=== PATIENT | female | born 1965 | race Caucasian/White ===

== ENCOUNTER → 2016-10-24 09:58 | Outpatient (CLI) | payer MEDICARE | END | disposition home or self-care (01) | LOC: D.MRI 09:58 | DX: M54.16 Radiculopathy, lumbar region (principal) ==

== ENCOUNTER 2016-11-10 13:39 | Emergency (ER) | payer MEDICARE ==
[2016-11-10 14:10] LABS: BASOPHILS 0.2 % (0-2); EOSINOPHILS 1.6 % (0-7); HEMATOCRIT 49.7 % (36.0-48.0); HEMOGLOBIN 16.6 g/dL (12-16); IMMATURE GRANULOCYTES 0.2 % (0-5); LYMPHOCYTES 46.2 % (15-50); MCH 32.4 pg (26.0-34.0); MCHC 33.4 g/dL (31.0-37.0); MCV 96.9 fL (80.0-100.0); MEAN PLATELET VOLUME 10.3 fL (7.4-10.4); MONOCYTES 7.6 % (2-11); NEUTROPHILS 44.2 % (40-80); RBC 5.13 10x6/uL (4.00-5.40); RDW 13.2 % (11.5-14.5); WBC 5.8 10x3/uL (4.8-10.8)
[2016-11-10 14:12] LABS: PLATELET COUNT 122 10x3/uL (130-400)
[2016-11-10 14:31] LABS: ALBUMIN 3.6 g/dL (3.4-5.0); ALKALINE PHOSPHATASE 96 U/L (46-116); ALT (SGPT) 28 U/L (10-68); BILIRUBIN - TOTAL 0.46 mg/dL (0.2-1.3); CALC OSMOLALITY 276 mosm/kg (275-300); CALCIUM 9.1 mg/dL (8.5-10.1); CARBON DIOXIDE 34.6 mmol/L (21.0-32.0); CHLORIDE - SERUM 102 mmol/L (98-107); CREATININE - SERUM 0.8 mg/dL (0.6-1.3); GLUCOSE 84 mg/dL (74-106); POTASSIUM - SERUM 4.4 mmol/L (3.5-5.1); PROTEIN - SERUM 6.9 g/dL (6.4-8.2); SODIUM 140 mmol/L (136-145); UREA NITROGEN 9 mg/dL (7-18); eGFR NON AFRICAN AMERICAN 81 mL/min (90-120)
[2016-11-10 15:30] LABS: APPEARANCE HAZY (CLEAR); BILIRUBIN NEGATIVE (NEGATIVE); COLOR YELLOW (YELLOW); GLUCOSE NEGATIVE (NEGATIVE); KETONE NEGATIVE (NEGATIVE); LEUKOCYTE ESTERASE TRACE (NEGATIVE); NITRITE NEGATIVE (NEGATIVE); PROTEIN NEGATIVE (NEGATIVE); UROBILINOGEN NORMAL (NORMAL)
[2016-11-10 15:31] LABS: BACTERIA FEW /hpf (NONE SEEN); EPITHELIAL CELLS 0-5 /hpf (0-5); RED CELLS - URINE >50 /hpf (0-5); WHITE CELLS - URINE 0-5 /hpf (0-5)
== END 2016-11-10 15:45 | disposition left against medical advice (07) ==
LOC: D.ER 13:39
PROVIDERS: Emergency Medicine Emergency Medical Services
DX: R10.9 Unspecified abdominal pain (principal)

== ENCOUNTER 2019-04-01 16:39 | Observation (INO) | payer MEDICARE ==
[~2019-04-01] VITALS: Ht 167.6 cm; Wt 101.6 kg
[2019-04-01] MEDS ORDERED: ZANAFLEX4 MG PO (16:51)
[2019-04-01] MEDS ORDERED: AMBIEN10 MG PO (16:52)
[2019-04-01] MEDS ORDERED: PERCOCET 10-321 EAC1 PO (16:52)
[2019-04-01] MEDS ORDERED: LYRICA150 MG PO (16:52)
[2019-04-01] MEDS ORDERED: MORPHINE SULFAT15 M4 PO (16:52)
[2019-04-01 17:19] LABS: BASOPHILS 0 % (0-2); EOSINOPHILS 1.4 % (0-7); HEMATOCRIT 48.7 % (36.0-48.0); HEMOGLOBIN 17.1 g/dL (12-16); IMMATURE GRANULOCYTES 0.2 % (0-5); LYMPHOCYTES 49.6 % (15-50); MCH 31.2 pg (26.0-34.0); MCHC 35.1 g/dL (31.0-37.0); MCV 88.9 fL (80.0-100.0); MEAN PLATELET VOLUME 10.1 fL (7.4-10.4); MONOCYTES 4.5 % (2-11); NEUTROPHILS 44.3 % (40-80); RBC 5.48 10x6/uL (4.00-5.40); RDW 12.9 % (11.5-14.5); WBC 5.8 10x3/uL (4.8-10.8)
[2019-04-01 17:31] LABS: PLATELET COUNT 149 10x3/uL (130-400)
[2019-04-01 17:32] LABS: ALBUMIN 3.8 g/dL (3.4-5.0); ALKALINE PHOSPHATASE 97 U/L (46-116); ALT (SGPT) 30 U/L (10-68); BILIRUBIN - TOTAL 0.49 mg/dL (0.2-1.3); CALC OSMOLALITY 281 mosm/kg (275-300); CALCIUM 9.1 mg/dL (8.5-10.1); CHLORIDE - SERUM 101 mmol/L (98-107); CREATININE - SERUM 0.9 mg/dL (0.6-1.3); GLUCOSE 115 mg/dL (74-106); POTASSIUM - SERUM 3.4 mmol/L (3.5-5.1); PROTEIN - SERUM 7.4 g/dL (6.4-8.2); SODIUM 142 mmol/L (136-145); UREA NITROGEN 6 mg/dL (7-18); eGFR NON AFRICAN AMERICAN 70 mL/min (90-120)
[2019-04-01 17:38] LABS: APTT 29.2 SECONDS (22.8-39.4); PROTIME 12.7 SECONDS (11.6-15.0)
[2019-04-01 17:44] LABS: CKMB 0.5 U/L (0.0-3.6); CREATINE KINASE 34 UL (21-215); MAGNESIUM - SERUM 1.7 mg/dL (1.8-2.4)
[2019-04-01 17:50] LABS: TROPONIN-I < 0.017 ng/mL (0.000-0.060)
--- NOTE | 2019-04-01 18:57 | NUR ---
PT REPORT RECEIVED FROM DENY MCCAULEY USING SBAR COMMUNICATION. SANDWICH TRAY PROVIDED FOR PT. PT PRESENTLY DENIES HAVING ANY FURTHER NEEDS AT PRESENT
[2019-04-01] MEDS ORDERED: FIORICET/ESGIC1 TAB PO (20:39)
[2019-04-01 20:51] VITALS: BP 140/96; BMI 36.2
--- NOTE | 2019-04-01 20:55 | NUR ---
RECIEVED REPORT FROM ANA RN IN ER. ARRIVED TO FLOOR IN W/C. ALERT AND ORIETNED X4. UP AD JER. IV TO RIGHT AC WITH DSG INTACT. TELEMETRY IN PLACE. ASKED IF SHE COULD WALK OUT TO HER CAR. THIS NURSE TOLD HER IT WAS NOT ADVISABLE SINCE SHE WAS ADMITTED WITH CHEST PAIN. PT AGREED. DENIES ANY OTHER NEEDS AT THIS TIME. VOICES CONCERNS OVER HER NIGHT MEDICATION.
[2019-04-02 04:00] VITALS: BP 113/87
[2019-04-02 05:01] LABS: HEMATOCRIT 46.3 % (36.0-48.0); HEMOGLOBIN 15.5 g/dL (12-16); MCHC 33.5 g/dL (31.0-37.0); MCV 89.7 fL (80.0-100.0); PLATELET COUNT 141 10x3/uL (130-400); RBC 5.16 10x6/uL (4.00-5.40); RDW 12.9 % (11.5-14.5); WBC 5.4 10x3/uL (4.8-10.8)
[2019-04-02 05:17] LABS: ANION GAP 12.3 mmol/L (8-16); CALCIUM 8.9 mg/dL (8.5-10.1); CARBON DIOXIDE 31.1 mmol/L (21.0-32.0); CREATININE - SERUM 0.9 mg/dL (0.6-1.3); MAGNESIUM - SERUM 1.7 mg/dL (1.8-2.4)
[2019-04-02 05:18] LABS: POTASSIUM - SERUM 4.4 mmol/L (3.5-5.1)
[2019-04-02 05:37] LABS: EOSINOPHILS 2 % (0-7); LYMPHOCYTES 53 % (15-50); MONOCYTES 9 % (2-11); NEUTROPHILS 36 % (40-80); PLATELET ESTIMATE NORMAL
[2019-04-02 08:58] VITALS: BMI 36.1
--- NOTE | 2019-04-02 08:59 | NUR ---
LEAVING FOR STRESS TEST BY W/C.
[2019-04-02 09:22] VITALS: BP 133/96
[2019-04-02 13:30] VITALS: Ht 167.6 cm; Wt 101.6 kg
[2019-04-02 14:35] VITALS: BP 132/94
[2019-04-02 14:58] LABS: APPEARANCE CLEAR (CLEAR); BILIRUBIN NEGATIVE (NEGATIVE); COLOR YELLOW (YELLOW); GLUCOSE NEGATIVE (NEGATIVE); KETONE NEGATIVE (NEGATIVE); NITRITE NEGATIVE (NEGATIVE); PROTEIN NEGATIVE (NEGATIVE); UROBILINOGEN NORMAL (NORMAL)
--- NOTE | 2019-04-02 15:00 | NUR ---
URINE SPECIMEN COLLECTED AND TAKEN TO LAB. WILL MONITOR.
[2019-04-02 15:06] LABS: UDS - AMPHET NEGATIVE QUAL (NEGATIVE); UDS - BARB POSITIVE QUAL (NEGATIVE); UDS - BENZO NEGATIVE QUAL (NEGATIVE); UDS - COCAINE NEGATIVE QUAL (NEGATIVE); UDS - OPIATE POSITIVE QUAL (NEGATIVE); UDS - PCP NEGATIVE QUAL (NEGATIVE); UDS - THC NEGATIVE QUAL (NEGATIVE)
[2019-04-02] MEDS ORDERED: PROTONIX40 MG PO (15:33)
--- NOTE | 2019-04-02 16:27 | NUR ---
IV AND TELEMETRY DCD. DC PLANS GIVEN. UNDERSTANDING VOICED.
--- NOTE | 2019-04-04 08:44 | MORECARE ---
CASE MANAGEMENT DISCHARGE SUMMARY PATIENT: KURT FLORES MIGUEL UNIT: [id number] ADM DATE: 04/01/19 AGE: 54 : 69 SEX: F ROOM/BED: D.4193 AUTHOR: ASHLI RAHMAN PHYSICIAN: REFERRING PHYSICIAN: RADHA LÓPEZ MD DATE OF SERVICE: 04/04/19 Discharge Plan Patient Name: [facility]URT FL[facility]ES [facility] [facility] 1965 Planned Disposition: Home Anticipated Discharge Date: 04/02/19 Discharge Date: 04/02/2019 Expected LOS: 1 Initial Reviewer: [email or web address] Initial Review Date: 04/04/2019 Generated: 04/04/19 9:44 am Patient Name: KURT FLORES Page [id number] at 0844 All edits/amendments must be made on the electronic document DICTATION DATE: 04/04/1944 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
== END 2019-04-02 13:28 | disposition home or self-care (01) ==
LOC: D.ER 16:39 → OBSVTIME 18:50 → D.M2 18:50
PROVIDERS: Family Medicine; ADMIT Internal Medicine Nephrology; ATTEND Internal Medicine Nephrology
DX: R07.9 Chest pain, unspecified (principal); I10 Essential (primary) hypertension; D64.9 Anemia, unspecified; N17.9 Acute kidney failure, unspecified; E87.6 Hypokalemia; E83.42 Hypomagnesemia; G89.29 Other chronic pain; M54.9 Dorsalgia, unspecified; F17.213 Nicotine dependence, cigarettes, with withdrawal

== ENCOUNTER 2020-10-03 18:22 | Emergency (ER) | payer MEDICARE ==
[~2020-10-03] VITALS: Ht 167.6 cm; Wt 100.0 kg
[~2020-10-03 18:22] MED LIST: AMBIEN10 MG PO; FIORICET/ESGIC1 TAB PO; LYRICA150 MG PO; MORPHINE SULFAT15 M4 PO; PERCOCET 10-321 EAC1 PO; PROTONIX40 MG PO; ZANAFLEX4 MG PO
[2020-10-03 18:26] VITALS: Ht 167.6 cm; Wt 100.0 kg
[2020-10-03] MEDS ORDERED: MEDROL DOSE PACK4 MG PO (19:27)
[2020-10-03 19:41] VITALS: BP 131/84
== END 2020-10-03 19:41 | disposition home or self-care (01) ==
LOC: D.ER 18:22
DX: M71.22 Synovial cyst of popliteal space [Baker], left knee (principal); M25.562 Pain in left knee